=== PATIENT | male | born 1955 | race Caucasian/White ===

== ENCOUNTER → 2016-09-12 | Outpatient (CLI) | payer BC ==
[~2016-09-12] MED LIST: ACHD5005 PO; CYCL10TA9 PO; IBP800T PO; NAPR-243 PO
--- NOTE | 2016-09-12 13:54 | Diagnostic Imaging Report ---
PROCEDURE: MRI left joint lower extremity without contrast. TECHNIQUE: Multiplanar, multisequence non contrast-enhanced MRI of the left lower extremity was accomplished. INDICATION: Fall. FINDINGS: There is a moderate suprapatellar joint effusion. Minimal amount of fluid in the popliteal fossa is seen suggestive of a ruptured small Hickman's cyst. There is subcutaneous edema around the knee most prominent along the medial aspect above the joint line and along the MCL without disruption of the MCL fibers compatible with a mild sprain. The extensor mechanism is intact. There is no ACL or PCL tear. Slight increased signal in the ACL is probably related to mucinous degeneration. There is a complex tear involving the posterior horn and the body of the medial meniscus with a nondisplaced tear also seen in the anterior horn. The lateral meniscus demonstrates increased signal in the posterior horn and the posterior root may relate to degeneration with no definitive tear. The lateral collateral ligament complex appears intact. There is no significant marrow contusion. There is a subchondral cyst formed in the posteromedial aspect of the medial plateau with a cyst measuring 8 mm. In the medial compartment, there is generalized mild to moderate thinning of the cartilage with associated cartilage fissuring. There is mild fissuring in the cartilage of the lateral compartment with no significant overall thinning. There is mild thinning of the cartilage in the patellofemoral compartment with mild fissuring seen. IMPRESSION: 1. Complex tear in the medial meniscus. 2. Mild MCL sprain. Dictated by: Dictated on workstation # [id number]
== END ==
LOC: RAD 10:35
PROVIDERS: ATTEND Nurse Practitioner Family
DX: S83.231A Complex tear of medial meniscus, current injury, right knee, initial encounter (principal); X58.XXXA Exposure to other specified factors, initial encounter; Y99.8 Other external cause status
CPT/HCPCS: 73721

== ENCOUNTER → 2018-03-06 | Outpatient (CLI) | payer BC ==
--- NOTE | 2018-03-06 11:57 | Diagnostic Imaging Report ---
Ultrasound of the soft tissues. Indication: Mass to right posterior neck. There are no prior studies available for comparison. By history, the patient has palpable abnormality in the soft tissues posterior to the lower neck on the right. The ultrasound examination does show fairly well-circumscribed 1.2 x 0.6 x 0.9 cm avascular hypoechoic lesion with internal echoes. This does have through-transmission. I suspect that this is a small benign lesion such as a slightly complicated cyst or perhaps a sebaceous cyst. No other abnormalities identified. Impression: The patient's palpable abnormality is most likely a benign process such as a slightly complicated cyst or perhaps a sebaceous cyst. Clinical followup is recommended. Dictated by: Dictated on workstation # [id number]
== END ==
LOC: RAD 08:45
PROVIDERS: ATTEND Nurse Practitioner Family
DX: R22.1 Localized swelling, mass and lump, neck (principal)
CPT/HCPCS: 76536

== ENCOUNTER 2022-08-28 05:39 | Outpatient (CLI) | payer BC, OTHER ==
[~2022-08-28] VITALS: Ht 172.7 cm; Wt 104.3 kg
[2022-08-28] MEDS ORDERED: ASPI-999 PO (08:37)
[2022-08-28] MEDS ORDERED: LISI10TA25 PO (08:37)
[2022-08-28] MEDS ORDERED: METF-397 PO (08:38)
== END 2022-08-28 08:45 ==
LOC: PREOP 05:39
PROVIDERS: ATTEND Surgery
DX: Z01.818 Encounter for other preprocedural examination (principal); Z12.11 Encounter for screening for malignant neoplasm of colon

== ENCOUNTER 2022-09-06 11:15 | Day surgery (SDC) | payer BC, OTHER ==
[~2022-09-06] VITALS: Ht 172.7 cm; Wt 104.3 kg
[~2022-09-06 11:15] MED LIST changes: +ASPI-999 PO; +LISI10TA25 PO; +METF-397 PO
[2022-09-06] MEDS ORDERED: LACTATED RINGERS 1,000 ML IV STA (11:20)
[2022-09-06 12:00] VITALS: BP 132/66
[2022-09-06] MEDS ORDERED: PROPOFOL INJECTION 50 ML IV ONE (13:02)
--- NOTE | 2022-09-06 13:35 | Progress Note-Post Operative ---
Post-Operative Progess Note Surgeon (s)/Sponge Fisherman (s) Surgeon CUATE VARGAS DO Sponge Fisherman: na Pre-Operative Diagnosis Screening colonoscopy Post-Operative Diagnosis Diverticulosis Procedure & Operative Findings Date of Procedure 09/06/22 Procedure Performed/Findings Colonoscopy Anesthesia Type per [facility] Estimated Blood Loss Estimated blood loss (mL): none Specimens/Packing Specimens Removed none CUATE VARGAS DO Sep 06, 2022 13:35
--- NOTE | 2022-09-06 13:37 | Discharge Inst-Simple/Standard ---
Discharge Inst-Standard Patient Instructions/Follow Up Plan of Care/Instructions/FU: 10 years Fanny, unless family history of colon cancer, then see Dr. Escobedo in 5 years. Any other issues, be seen at that time Activity as Tolerated: Yes Discharge Diet: No Restrictions CUATE ESCOBEDO DO Sep 06, 2022 13:37
[2022-09-06 13:39] VITALS: BP 93/50
[2022-09-06 13:44] VITALS: BP 91/55
[2022-09-06 13:45] VITALS: BP 91/55
[2022-09-06 14:15] VITALS: BP 124/62
--- NOTE | 2022-09-06 14:31 | Anesthesia-General Post-Op ---
MAC Patient Condition Mental Status/LOC: Same as Preop Cardiovascular: Satisfactory Nausea/Vomiting: Absent Respiratory: Satisfactory Pain: Controlled Complications: Absent Post Op Complications Complications None Follow Up Care/Instructions Patient Instructions None needed. Anesthesiology Discharge Order Discharge Order Patient is doing well, no complaints, stable vital signs, no apparent adverse anesthesia problems. No complications reported per nursing. CHRISTIAN RACHEL 24, 2023 14:31
[2022-09-06 14:35] VITALS: BP 124/62
--- NOTE | 2022-09-06 20:12 | OPERATIVE REPORT ---
DATE OF SERVICE: 09/06/2022 PREOPERATIVE DIAGNOSIS: Screening colonoscopy. POSTOPERATIVE DIAGNOSIS: Normal colon, diverticulosis. PROCEDURE: Colonoscopy. SURGEON: Cuate Escobedo DO. ANESTHESIA: Per MDA. ESTIMATED BLOOD LOSS: None. COMPLICATIONS: None. INDICATIONS: The patient is a 66-year-old male, needing screening colonoscopy. He understands risks and benefits of procedure and wished to proceed. Consent was signed in chart. DESCRIPTION OF PROCEDURE: The patient was taken to endoscopy suite, placed in left lateral recumbent position. Timeout was performed. Digital rectal exam was performed. No palpable polyps, masses or ulcerations. Scope was inserted in the rectum and advanced all the way to the cecum with minimal difficulty. Prep was adequate. Scope was then slowly retracted back. No polyps, masses or ulcerations in the cecum, ascending, transverse, descending and sigmoid colon. Sigmoid colon had some diverticulosis present. Scope was then continuously retracted back into the rectum where it was also retroflexed, noting no other pathology. Scope was returned to its normal position, slowly withdrawn until completely removed. The patient tolerated the procedure well without complication and was taken to the recovery room in stable condition. RECOMMENDATIONS: The patient will need to increase fiber due to diverticulosis. We would recommend repeat colonoscopy in 10 years unless family history of colon cancer, which was then be 5 years. Any issues before that, be seen at that time. Job ID: [id number] DocumentID: [id number] Dictated Date: 09/06/2022 14:22:44 [employer] Date: 09/06/2022 20:10:00 Dictated By: CUATE ESCOBEDO DO
== END 2022-09-06 14:35 | disposition home or self-care (01) ==
LOC: ENDO 11:15
PROVIDERS: ATTEND Surgery
DX: Z12.11 Encounter for screening for malignant neoplasm of colon (principal); K57.30 Diverticulosis of large intestine without perforation or abscess without bleeding; E66.9 Obesity, unspecified; Z68.34 Body mass index [BMI] 34.0-34.9, adult
CPT/HCPCS: 82947